=== PATIENT | male | born 1970 | race Caucasian/White ===

== ENCOUNTER 2021-04-04 13:13 | Outpatient (CLI) | payer BC, SELFPAY ==
[2021-04-04 13:32] VITALS: BP 152/91; PULSE 93; RESP 18; TEMP 36.7; O2SAT 94; BMI 29.8
[2021-04-04 14:03] VITALS: BP 153/95; PULSE 72; RESP 16; O2SAT 97
[2021-04-04 15:00] VITALS: BP 157/89; PULSE 78; RESP 18; TEMP 36.7; O2SAT 96
--- NOTE | 2021-04-05 14:52 | PC.SOCIAL ---
antibody infusion follow up call patient unsure that he is better at this time he states he isn't any worse. patients symptoms bad case of the flu low grade fever, cough.
== END 2021-04-04 13:14 | disposition home or self-care (01) ==
LOC: OPS 13:15
PROVIDERS: PCP Plastic Surgery; Visit Provider Nurse Practitioner Family
DX: U07.1 COVID-19 (principal)
CPT/HCPCS: 96365

== ENCOUNTER → 2023-08-17 10:54 | Outpatient (BNVA) | payer BC, SELFPAY | PROVIDERS: PCP Plastic Surgery; Visit Provider Emergency Medicine | DX: S91.332A Puncture wound without foreign body, left foot, initial encounter; W45.0XXA Nail entering through skin, initial encounter | CPT/HCPCS: 73630 ==

== ENCOUNTER → 2023-11-09 13:51 | Outpatient (BNVA) | payer BC, SELFPAY | PROVIDERS: PCP Plastic Surgery; Visit Provider Emergency Medicine | DX: R53.1 Weakness (principal) | CPT/HCPCS: 93005 ==

== ENCOUNTER 2023-11-09 16:27 | Emergency (ER) | payer BC, SELFPAY ==
[2023-11-09 16:52] VITALS: BP 181/96; PULSE 77; RESP 16; TEMP 36.8; O2SAT 96; BMI 31.0
--- NOTE | 2023-11-09 16:58 | ECG_ITS ---
[facility] Test Date: 2023-11-09 Pat Name: Jordan Elliott Department: Room: Gender: Male [employer]ut[employer] Stit[employer] Operator: : [id number] Requested By: Trell Goldsmith Order Number: [id number] Rafi MD: Harvey Stone M.D. Measurements Intervals [place] Rate: 73 P: 47 FL: 138 QRS: 54 QRSD: 89 T: 60 QT: 395 QTc: 437 Interpretive Statements SINUS RHYTHM NONSPECIFIC T-WAVE ABNORMALITY No previous ECG available for comparison Electronically Signed On 11-09-2023 19:57:02 CDT by Harvey Stone M.D. [id number]
== END 2023-11-09 19:35 | disposition left against medical advice (07) ==
LOC: ER 16:29
PROVIDERS: Emergency Provider Family Medicine; PCP Plastic Surgery
DX: Z53.21 Procedure and treatment not carried out due to patient leaving prior to being seen by health care provider (principal)
CPT/HCPCS: 82962; 93005